=== PATIENT | female | born 1995 | race African-American/Black ===

== ENCOUNTER 2017-03-28 08:34 | Emergency (ER) | payer SELFPAY ==
[2017-03-28] MEDS ORDERED: methylPREDNISolone Sod Succ/PF 125 MG/2 ML VIAL ONE ×2 (09:52→09:53)
[2017-03-28] MEDS ORDERED: Water For Inject, Bacteriostat 30 ML ONE ×2 (09:52→09:54)
== END 2017-03-28 10:17 | disposition home or self-care (01) ==
LOC: ERS 08:34
DX: J02.9 Acute pharyngitis, unspecified (principal); R09.81 Nasal congestion; J32.9 Chronic sinusitis, unspecified; D50.0 Iron deficiency anemia secondary to blood loss (chronic); F90.9 Attention-deficit hyperactivity disorder, unspecified type; Z79.899 Other long term (current) drug therapy
CPT/HCPCS: 87081; 87430; 96372; J2930

== ENCOUNTER 2017-04-03 23:24 | Emergency (ER) | payer SELFPAY ==
[2017-04-04] MEDS ORDERED: methylPREDNISolone Sod Succ/PF 125 MG/2 ML VIAL ONE (00:02)
== END 2017-04-04 00:20 | disposition home or self-care (01) ==
LOC: ERS 23:24
DX: J02.9 Acute pharyngitis, unspecified (principal); F90.9 Attention-deficit hyperactivity disorder, unspecified type
CPT/HCPCS: 96372; J2930

== ENCOUNTER 2017-04-17 14:42 | Emergency (ER) | payer SELFPAY ==
[2017-04-17 15:42] LABS: #Eosinphils 0.1 thou/uL (0.0-0.7); #Lymphocytes 2.2 thou/uL (1.20-3.40); #Monocytes 0.5 thou/uL (0.11-0.59); #Neutrophils 4.2 thou/uL (1.40-6.50); %Basophils 0.6 % (0.0-1.0); %Eosinophils 1.4 % (0.0-10.0); %Lymphocytes 31.4 % (28.0-48.0); %Monocytes 7.4 % (0.0-4.0); Hematocrit 35.6 % (36.0-47.0); Mean Platelet Volume 7.1 fL (7.4-10.4); Red Blood Cell (RBC) Count 4.79 mill/uL (4.00-5.20)
[2017-04-17 16:06] LABS: ALT (SGPT) 15 U/L (8-55); AST (SGOT) 12 U/L (5-34); Alkaline Phosphatase 82 U/L (40-150); Anion Gap 10 mmol/L (10-20); BUN (Urea Nitrogen) 10 mg/dL (7.0-18.7); Bilirubin, Total 0.6 mg/dL (0.2-1.2); CK (CPK) 59 U/L (29-168); Calc. Creatinine Clearance 0 mL/min (70-130); Calcium 9.2 mg/dL (7.8-10.44); Carbon Dioxide 26 mmol/L (22-29); Chloride 103 mmol/L (98-107); Estimated GFR-MDRD Greater than 90; Globulin 3.5 g/dL (2.4-3.5); Magnesium 1.8 mg/dL (1.7-2.2); Protein, Total 7.4 g/dL (6.0-8.3)
[2017-04-17 16:09] LABS: Troponin I Less than 0.010 ng/mL (< 0.028)
--- NOTE | 2017-04-17 16:12 | RAD ---
TWO VIEW CHEST: History: Chest pain. Comparison: 03-15-09 FINDINGS: The lungs appear clear of infiltrate. No evidence of effusion or pneumothorax. Heart and mediastinum unremarkable. IMPRESSION: No acute finding. POS: [facility]
== END 2017-04-17 17:12 | disposition home or self-care (01) ==
LOC: ERS 14:42
DX: R00.2 Palpitations (principal); D50.0 Iron deficiency anemia secondary to blood loss (chronic); F90.9 Attention-deficit hyperactivity disorder, unspecified type
CPT/HCPCS: 36415; 71020; 80053; 82553; 83735; 84443; 84484; 85025; 85379; 93005

== ENCOUNTER 2017-08-29 12:06 | Emergency (ER) | payer SELFPAY ==
[2017-08-29 13:01] LABS: #Eosinphils 0.3 thou/uL (0.0-0.7); #Lymphocytes 2.2 thou/uL (1.20-3.40); #Monocytes 0.5 thou/uL (0.11-0.59); #Neutrophils 6.2 thou/uL (1.40-6.50); %Basophils 0.1 % (0.0-1.0); %Eosinophils 3.3 % (0.0-10.0); %Lymphocytes 23.7 % (28.0-48.0); %Monocytes 5.4 % (0.0-4.0); %Neutrophils 67.5 % (31.0-61.0); Hemoglobin 11.8 g/dL (12.0-16.0); Mean Corpuscular HGB CONC 32.5 g/dL (32.0-36.0); Mean Corpuscular Hemoglobin 22.3 pg (25.0-35.0); Mean Corpuscular Volume 68.5 fl (77.0-87.0); Mean Platelet Volume 7.3 fL (7.4-10.4); Platelet Count 420 thou/uL (130-400); RBC Distribution Width 14.1 % (11.5-14.5); Red Blood Cell (RBC) Count 5.28 mill/uL (4.00-5.20); White Blood Cell (WBC) Count 9.1 thou/uL (4.8-10.8)
[2017-08-29 13:11] LABS: Bilirubin Small (Negative); Blood, Urine Negative (Negative); Clarity CLEAR (Clear); Glucose, Urine (Dipstick) Negative (Negative); Leukocyte Trace (Negative); Nitrite Negative (Negative); Protein, Urine (Dipstick) Trace mg/dL (Neg-Trace); Specific Gravity, Urine 1.024 (1.002-1.036); pH, Urine 5.5 (5.0-9.0)
[2017-08-29 13:14] LABS: Bacteria/HPF Rare-Few HPF (None Seen); Hyaline Casts/LPF 4-6 HYALINE CAST LPF (0-3 Hyaline); Pathc Cast-AUWi Flag 0.67 (0-2.49)
[2017-08-29] MEDS ORDERED: Ondansetron HCl/PF 4 MG/2 ML Vial ONE (13:19)
[2017-08-29 13:20] LABS: Pregnancy Test - Urine (BHCG) Negative (Negative); Pregu Control Background? CLEAR/WHITE (CLR/WHITE); Pregu Control Bar Appear? YES (CONTROL BAR); Specific Gravity 1.024 (1.002-1.036)
[2017-08-29 13:22] LABS: ALT (SGPT) 14 U/L (8-55); AST (SGOT) 13 U/L (5-34); Albumin 4.1 g/dL (3.5-5.0); Alkaline Phosphatase 100 U/L (40-150); Anion Gap 14 mmol/L (10-20); BUN (Urea Nitrogen) 9 mg/dL (7.0-18.7); Calc. Creatinine Clearance 0 mL/min (70-130); Calcium 9.5 mg/dL (7.8-10.44); Carbon Dioxide 20 mmol/L (22-29); Chloride 106 mmol/L (98-107); Estimated GFR-MDRD Greater than 90; Globulin 3.8 g/dL (2.4-3.5); Glucose 109 mg/dL (70-105); Potassium 3.6 mmol/L (3.5-5.1); Protein, Total 7.9 g/dL (6.0-8.3); Sodium 136 mmol/L (136-145)
[2017-08-29 13:34] LABS: BHCG - Serum Negative (NEGATIVE); Pregs Control Background? CLEAR/WHITE (CLR/WHITE); Pregs Control Bar Appear? YES (CONTROL BAR)
[2017-08-29 13:45] LABS: CK (CPK) 58 U/L (29-168); Lipase 9 U/L (8-78)
== END 2017-08-29 15:00 | disposition home or self-care (01) ==
LOC: ERS 12:06
DX: E86.0 Dehydration (principal); F90.9 Attention-deficit hyperactivity disorder, unspecified type; D64.9 Anemia, unspecified
CPT/HCPCS: 36415; 80053; 81003; 81015; 81025; 82550; 83690; 84703; 85025; 96361; 96374; J2405

== ENCOUNTER 2017-10-22 13:06 | Emergency (ER) | payer SELFPAY ==
[2017-10-22] MEDS ORDERED: Dexamethasone 4 MG TAB ONE (14:46)
[2017-10-22] MEDS ORDERED: Acetaminophen 500 MG TAB ONE (14:46)
== END 2017-10-22 14:57 | disposition home or self-care (01) ==
LOC: ERS 13:06
DX: B34.9 Viral infection, unspecified (principal); F90.9 Attention-deficit hyperactivity disorder, unspecified type; D64.9 Anemia, unspecified
CPT/HCPCS: 87081; 87430; 99283; J8540

== ENCOUNTER 2018-02-14 08:54 | Emergency (ER) | payer SELFPAY ==
[2018-02-14] MEDS ORDERED: Acetaminophen 500 MG TAB ONE (10:16)
[2018-02-14] MEDS ORDERED: Ibuprofen 800 MG TAB ONE (10:16)
--- NOTE | 2018-02-14 10:40 | CT ---
CT HEAD NONCONTRAST: INDICATIONS: Headache. FINDINGS: There is no ventriculomegaly, mass effect, midline shift, or acute intracranial hemorrhage. The para nasal sinuses are clear, where visualized. IMPRESSION: No acute intracranial hemorrhage or mass effect. POS: [facility]
== END 2018-02-14 10:58 | disposition home or self-care (01) ==
LOC: ERS 08:54
DX: J30.9 Allergic rhinitis, unspecified (principal); R51 Headache; F90.9 Attention-deficit hyperactivity disorder, unspecified type; D64.9 Anemia, unspecified
CPT/HCPCS: 70450

== ENCOUNTER 2018-03-13 10:19 | Emergency (ER) | payer SELFPAY ==
[2018-03-13 11:20] LABS: Mean Corpuscular HGB CONC 31.7 g/dL (32.0-36.0); Mean Corpuscular Hemoglobin 21.2 pg (27.0-31.0); Mean Corpuscular Volume 66.7 fL (78.0-98.0); Mean Platelet Volume 8.2 fL (7.4-10.4); Platelet Count 432 thou/uL (130-400); RBC Distribution Width 14.6 % (11.5-14.5); Red Blood Cell (RBC) Count 4.74 mill/uL (4.20-5.40); White Blood Cell (WBC) Count 6.7 thou/uL (4.8-10.8)
[2018-03-13 11:21] LABS: #Eosinphils 0.2 thou/uL (0.0-0.7); #Lymphocytes 1.9 thou/uL (1.20-3.40); #Monocytes 0.3 thou/uL (0.11-0.59); #Neutrophils 4.2 thou/uL (1.40-6.50); %Basophils 0.1 % (0.0-1.0); %Eosinophils 3.3 % (0.0-10.0); %Lymphocytes 28.8 % (21.0-51.0); %Monocytes 4.9 % (0.0-10.0); %Neutrophils 62.9 % (42.0-75.0)
[2018-03-13 11:33] LABS: Pregnancy Test - Urine (BHCG) Negative (Negative); Pregu Control Background? CLEAR/WHITE (CLR/WHITE); Pregu Control Bar Appear? YES (CONTROL BAR); Specific Gravity 1.022 (1.002-1.036)
[2018-03-13 11:37] LABS: Anion Gap 12 mmol/L (10-20); BUN (Urea Nitrogen) 8 mg/dL (7.0-18.7); Calc. Creatinine Clearance 0 mL/min (70-130); Calcium 9.2 mg/dL (7.8-10.44); Carbon Dioxide 22 mmol/L (22-29); Chloride 107 mmol/L (98-107); Estimated GFR-MDRD Greater than 90; Glucose 114 mg/dL (70-105); Potassium 3.5 mmol/L (3.5-5.1); Sodium 137 mmol/L (136-145)
[2018-03-13 11:38] LABS: ALT (SGPT) 17 U/L (8-55); AST (SGOT) 16 U/L (5-34); Albumin 3.9 g/dL (3.5-5.0); Alkaline Phosphatase 93 U/L (40-150); Bilirubin, Direct 0.2 mg/dL (0.1-0.3); Bilirubin, Total 0.5 mg/dL (0.2-1.2); Protein, Total 7.4 g/dL (6.0-8.3)
[2018-03-13] MEDS ORDERED: Ondansetron HCl/PF 4 MG/2 ML Vial ONE (11:40)
[2018-03-13] MEDS ORDERED: Mag-Al 1200 mg/1200 mg/30 ML UDCUP ONE (11:40)
[2018-03-13] MEDS ORDERED: Lidocaine Viscous Sol 2% 15 ml UD Cup ONE (11:41)
[2018-03-13] MEDS ORDERED: Dicyclomine 20 MG TAB ONE (11:41)
[2018-03-13 11:51] LABS: Hypochromia SLIGHT = 6-15 cells (100X) (0-5/hpf); MDiff Complete? YES; Microcytosis MODERATE=15-30 cells (100X) (0-5/hpf); PLT Morphology Comment Appears Increased; Polychromasia SLIGHT = 2-3 cells (100X) (0-2/hpf)
[2018-03-13 12:54] LABS: Bilirubin Negative (Negative); Blood, Urine Negative (Negative); Clarity CLEAR (Clear); Glucose, Urine (Dipstick) Negative (Negative); Leukocyte Negative (Negative); Nitrite Negative (Negative); Protein, Urine (Dipstick) Negative (Neg-Trace); Specific Gravity, Urine 1.022 (1.002-1.036)
== END 2018-03-13 13:06 | disposition home or self-care (01) ==
LOC: ERS 10:19
DX: K52.9 Noninfective gastroenteritis and colitis, unspecified (principal); D64.9 Anemia, unspecified
CPT/HCPCS: 36415; 80048; 80076; 81003; 81025; 85025; 96361; 96374; J2405

== ENCOUNTER 2018-04-17 16:03 | Emergency (ER) | payer SELFPAY | END 2018-04-17 20:33 | disposition home or self-care (01) | LOC: ERS 16:03 | DX: B34.9 Viral infection, unspecified (principal); F90.9 Attention-deficit hyperactivity disorder, unspecified type; D64.9 Anemia, unspecified | CPT/HCPCS: 87081; 87430; 87804; 99283 ==

== ENCOUNTER 2018-04-24 17:19 | Emergency (ER) | payer SELFPAY ==
[2018-04-24 18:45] LABS: #Basophils 0.1 thou/uL (0.0-0.2); #Eosinphils 0.1 thou/uL (0.0-0.7); #Lymphocytes 4.9 thou/uL (1.20-3.40); #Monocytes 0.6 thou/uL (0.11-0.59); #Neutrophils 8.4 thou/uL (1.40-6.50); %Basophils 0.6 % (0.0-1.0); %Eosinophils 0.5 % (0.0-10.0); %Lymphocytes 34.9 % (21.0-51.0); %Monocytes 4.5 % (0.0-10.0); %Neutrophils 59.4 % (42.0-75.0); Hemoglobin 11.4 g/dL (12.0-16.0); Mean Corpuscular HGB CONC 30.9 g/dL (32.0-36.0); Mean Corpuscular Hemoglobin 20.6 pg (27.0-31.0); Mean Corpuscular Volume 66.6 fL (78.0-98.0); Mean Platelet Volume 8.7 fL (7.4-10.4); Platelet Count 428 thou/uL (130-400); RBC Distribution Width 15.3 % (11.5-14.5); Red Blood Cell (RBC) Count 5.54 mill/uL (4.20-5.40); White Blood Cell (WBC) Count 14.1 thou/uL (4.8-10.8)
[2018-04-24 18:59] LABS: BHCG - Serum Negative (NEGATIVE); Pregs Control Background? CLEAR/WHITE (CLR/WHITE); Pregs Control Bar Appear? YES (CONTROL BAR)
[2018-04-24 19:10] LABS: ALT (SGPT) 12 U/L (8-55); AST (SGOT) 14 U/L (5-34); Albumin 4.1 g/dL (3.5-5.0); Alkaline Phosphatase 95 U/L (40-150); Anion Gap 14 mmol/L (10-20); BUN (Urea Nitrogen) 9 mg/dL (7.0-18.7); Bilirubin, Total 0.4 mg/dL (0.2-1.2); Calc. Creatinine Clearance 0 mL/min (70-130); Calcium 9.4 mg/dL (7.8-10.44); Carbon Dioxide 19 mmol/L (22-29); Chloride 107 mmol/L (98-107); Estimated GFR-MDRD Greater than 90; Globulin 3.9 g/dL (2.4-3.5); Glucose 146 mg/dL (70-105); Potassium 3.3 mmol/L (3.5-5.1); Sodium 137 mmol/L (136-145)
[2018-04-24] MEDS ORDERED: Famotidine 20 MG TAB ONE (19:39)
[2018-04-24] MEDS ORDERED: Ondansetron ODT 4 MG TAB ONE (19:39)
[2018-04-24] MEDS ORDERED: Potassium Chloride 20 MEQ TAB ONE (20:20)
== END 2018-04-24 20:30 | disposition home or self-care (01) ==
LOC: ERS 17:19
DX: R11.2 Nausea with vomiting, unspecified (principal); D64.9 Anemia, unspecified; F90.9 Attention-deficit hyperactivity disorder, unspecified type
CPT/HCPCS: 36415; 80053; 84703; 85025; 99284; Q0162

== ENCOUNTER 2018-06-02 08:05 | Emergency (ER) | payer SELFPAY ==
[2018-06-02 09:15] LABS: #Eosinphils 0.1 thou/uL (0.0-0.7); #Lymphocytes 2.2 thou/uL (1.20-3.40); #Monocytes 0.6 thou/uL (0.11-0.59); #Neutrophils 5.7 thou/uL (1.40-6.50); %Basophils 0.4 % (0.0-1.0); %Eosinophils 1.5 % (0.0-10.0); %Lymphocytes 25.3 % (21.0-51.0); %Monocytes 7.2 % (0.0-10.0); %Neutrophils 65.6 % (42.0-75.0); Hemoglobin 9.8 g/dL (12.0-16.0); Mean Corpuscular HGB CONC 31.5 g/dL (32.0-36.0); Mean Corpuscular Hemoglobin 20.7 pg (27.0-31.0); Mean Corpuscular Volume 65.9 fL (78.0-98.0); Mean Platelet Volume 8.6 fL (7.4-10.4); Platelet Count 401 thou/uL (130-400); RBC Distribution Width 15.2 % (11.5-14.5); Red Blood Cell (RBC) Count 4.75 mill/uL (4.20-5.40); White Blood Cell (WBC) Count 8.7 thou/uL (4.8-10.8)
[2018-06-02 09:23] LABS: BHCG - Serum Negative (NEGATIVE); Pregs Control Background? CLEAR/WHITE (CLR/WHITE); Pregs Control Bar Appear? YES (CONTROL BAR)
[2018-06-02 09:34] LABS: Troponin I Less than 0.010 ng/mL (< 0.028)
[2018-06-02 09:42] LABS: ALT (SGPT) 13 U/L (8-55); AST (SGOT) 13 U/L (5-34); Albumin 3.9 g/dL (3.5-5.0); Alkaline Phosphatase 98 U/L (40-150); Anion Gap 13 mmol/L (10-20); BUN (Urea Nitrogen) 7 mg/dL (7.0-18.7); Bilirubin, Total 0.5 mg/dL (0.2-1.2); Calc. Creatinine Clearance 0 mL/min (70-130); Calcium 9.2 mg/dL (7.8-10.44); Carbon Dioxide 22 mmol/L (22-29); Chloride 107 mmol/L (98-107); Estimated GFR-MDRD Greater than 90; Globulin 3.1 g/dL (2.4-3.5); Glucose 112 mg/dL (70-105); Potassium 3.9 mmol/L (3.5-5.1); Sodium 138 mmol/L (136-145)
--- NOTE | 2018-06-02 09:51 | RAD ---
2 VIEWS CHEST: Date: 06/02/18 COMPARISON: 04/17/17. HISTORY: Cough. FINDINGS: Lungs are clear. Heart and mediastinal contours unremarkable. IMPRESSION: No acute findings. POS: [facility]
--- NOTE | 2018-06-02 11:09 | CT ---
CTA CHEST WITH CONTRAST: Date: 06/02/18 COMPARISON: None. HISTORY: 23-year-old female with sore throat and cough. Dyspnea. Chest pressure. TECHNIQUE: Multiple contiguous axial images were obtained in a CTA of the chest with contrast per pulmonary embo lism protocol. 3D oblique MIP reformats and direct coronal reformats were performed. FINDINGS: The pulmonary arteries are well opacified without filling defects to suggest pulmonary emboli. The he art is normal in size without focal cardiac abnormality. No hilar or mediastinal lymphadenopathy seen . No focal infiltrates are seen in the lungs. No pneumothorax or pleural effusions are seen. No suspici ous pulmonary nodules are present. The visualized subdiaphragmatic structures and chest wall soft tissues are unremarkable. The bones ar e unremarkable. IMPRESSION: No evidence of pulmonary thromboembolism. POS: [facility]
[2018-06-02] MEDS ORDERED: Iopamidol 370 76% 100 ML VIAL ONE (12:43)
== END 2018-06-02 11:17 | disposition home or self-care (01) ==
LOC: ERS 08:05
DX: J02.9 Acute pharyngitis, unspecified (principal); F90.9 Attention-deficit hyperactivity disorder, unspecified type; D64.9 Anemia, unspecified
CPT/HCPCS: 71046; 71275; 80053; 84484; 84703; 85025; 85379; 87081; 87430; 93005

== ENCOUNTER 2018-06-10 14:32 | Emergency (ER) | payer SELFPAY | END 2018-06-10 15:55 | disposition home or self-care (01) | LOC: ERS 14:32 | DX: J30.9 Allergic rhinitis, unspecified (principal); D64.9 Anemia, unspecified; F90.9 Attention-deficit hyperactivity disorder, unspecified type | CPT/HCPCS: 99283 ==

== ENCOUNTER 2018-06-17 09:51 | Emergency (ER) | payer SELFPAY | END 2018-06-17 11:10 | disposition home or self-care (01) | LOC: ERS 09:51 | DX: J02.9 Acute pharyngitis, unspecified (principal); D64.9 Anemia, unspecified; F90.9 Attention-deficit hyperactivity disorder, unspecified type | CPT/HCPCS: 99281 ==

== ENCOUNTER 2018-06-30 16:22 | Emergency (ER) | payer SELFPAY ==
[2018-06-30 19:02] LABS: Bilirubin Small (Negative); Blood, Urine Negative (Negative); Clarity CLEAR (Clear); Glucose, Urine (Dipstick) Negative (Negative); Leukocyte Negative (Negative); Nitrite Negative (Negative); Protein, Urine (Dipstick) Trace mg/dL (Neg-Trace); Specific Gravity, Urine 1.027 (1.002-1.036)
[2018-06-30 19:34] LABS: Pregnancy Test - Urine (BHCG) Negative (Negative); Pregu Control Background? CLEAR/WHITE (CLR/WHITE); Pregu Control Bar Appear? YES (CONTROL BAR); Specific Gravity 1.027 (1.002-1.036)
== END 2018-06-30 20:25 | disposition home or self-care (01) ==
LOC: ERS 16:22
DX: R11.2 Nausea with vomiting, unspecified (principal); D64.9 Anemia, unspecified; F90.9 Attention-deficit hyperactivity disorder, unspecified type
CPT/HCPCS: 81003; 81025; 99284

== ENCOUNTER 2018-08-20 11:39 | Emergency (ER) | payer SELFPAY | END 2018-08-20 14:20 | disposition home or self-care (01) | LOC: ERS 11:39 | DX: J06.9 Acute upper respiratory infection, unspecified (principal); R11.2 Nausea with vomiting, unspecified; D64.9 Anemia, unspecified; F90.9 Attention-deficit hyperactivity disorder, unspecified type | CPT/HCPCS: 87804; 99284 ==

== ENCOUNTER 2019-01-06 22:19 | Emergency (ER) | payer SELFPAY ==
[2019-01-06 22:46] LABS: Bilirubin Small (Negative); Blood, Urine Negative (Negative); Glucose, Urine (Dipstick) Negative (Negative); Leukocyte Negative (Negative); Nitrite Positive (Negative); Protein, Urine (Dipstick) 30 mg/dL (Neg-Trace)
[2019-01-06 22:49] LABS: Clarity Hazy (Clear); Pregnancy Test - Urine (BHCG) Negative (Negative); Pregu Control Background? CLEAR/WHITE (CLR/WHITE); Pregu Control Bar Appear? YES (CONTROL BAR); Specific Gravity 1.031 (1.002-1.036)
[2019-01-06 22:55] LABS: Bacteria/HPF 1+ HPF (None Seen)
== END 2019-01-06 23:30 | disposition home or self-care (01) ==
LOC: ERS 22:19
DX: N39.0 Urinary tract infection, site not specified (principal); F90.9 Attention-deficit hyperactivity disorder, unspecified type
CPT/HCPCS: 81003; 81015; 81025; 99283

== ENCOUNTER 2019-10-28 17:17 | Emergency (ER) | payer BC, SELFPAY ==
[~2019-10-28 17:17] MED LIST: Iopamidol-370 76% 500 ML 1 ML ONE
[2019-10-28] MEDS ORDERED: Ondansetron PF 4 MG/2 ML Vial ONE (17:46)
[2019-10-28] MEDS ORDERED: Morphine 4 MG/ML VIAL ONE ×2 (17:46→19:44)
[2019-10-28 18:03] LABS: Pregnancy Test - Urine (BHCG) Negative (Negative); Pregu Control Background? CLEAR/WHITE (CLR/WHITE); Pregu Control Bar Appear? YES (CONTROL BAR); Specific Gravity 1.023 (1.002-1.036)
[2019-10-28 18:04] LABS: Bilirubin Negative (Negative); Blood, Urine Negative (Negative); Clarity Turbid (Clear); Glucose, Urine (Dipstick) Normal (Negative); Leukocyte 25 Leu/uL (Negative); Nitrite Negative (Negative); Protein, Urine (Dipstick) 30 mg/dL (Neg-Trace)
[2019-10-28 18:05] LABS: Bacteria/HPF Rare-Few HPF (None Seen)
[2019-10-28 18:25] LABS: #Eosinphils 0.4 thou/uL (0.0-0.7); #Lymphocytes 2.7 thou/uL (1.20-3.40); #Monocytes 0.4 thou/uL (0.11-0.59); #Neutrophils 5.3 thou/uL (1.40-6.50); %Basophils 0.5 % (0.0-1.0); %Eosinophils 4.4 % (0.0-10.0); %Lymphocytes 30.9 % (21.0-51.0); %Monocytes 4.1 % (0.0-10.0); %Neutrophils 60.2 % (42.0-75.0); Hemoglobin 12.1 g/dL (12.0-16.0); Mean Corpuscular HGB CONC 32.2 g/dL (32.0-36.0); Mean Corpuscular Hemoglobin 22.3 pg (27.0-31.0); Mean Corpuscular Volume 69.2 fL (78.0-98.0); Mean Platelet Volume 7.7 fL (7.4-10.4); Platelet Count 387 thou/uL (130-400); RBC Distribution Width 14.5 % (11.5-14.5); Red Blood Cell (RBC) Count 5.41 mill/uL (4.20-5.40); White Blood Cell (WBC) Count 8.8 thou/uL (4.8-10.8)
[2019-10-28 18:39] LABS: ALT (SGPT) 13 U/L (8-55); AST (SGOT) 12 U/L (5-34); Albumin 4.1 g/dL (3.5-5.0); Alkaline Phosphatase 98 U/L (40-110); Anion Gap 12 mmol/L (10-20); BUN (Urea Nitrogen) 7 mg/dL (7.0-18.7); Bilirubin, Total 0.5 mg/dL (0.2-1.2); Calc. Creatinine Clearance 0 mL/min (70-130); Calcium 9.6 mg/dL (7.8-10.44); Carbon Dioxide 24 mmol/L (22-29); Chloride 105 mmol/L (98-107); Estimated GFR-MDRD Greater than 90; Globulin 3.7 g/dL (2.4-3.5); Glucose 100 mg/dL (70-105); Lipase 15 U/L (8-78); Potassium 3.5 mmol/L (3.5-5.1); Protein, Total 7.8 g/dL (6.0-8.3); Sodium 137 mmol/L (136-145)
[2019-10-28 18:57] LABS: MDiff Complete? YES; Microcytosis MODERATE=15-30 cells (100X) (0-5/hpf); Ovalocytes SLIGHT = 2-5 cells (100X) (0-1/hpf); Platelet Morphology Comment Appears Adequate; Polychromasia SLIGHT = 2-3 cells (100X) (0-2/hpf); Target Cells SLIGHT = 2-5 cells (100X) (0-1/hpf)
--- NOTE | 2019-10-28 19:30 | CT ---
CT ABDOMEN AND PELVIS WITH IV CONTRAST: 10/28/19 HISTORY: Abdominal pain for one week. Patient states pain is in periumbilical region and radiates into the ri ght lower quadrant. Nausea and vomiting. No appetite. COMPARISON: 09/08/2011. FINDINGS: The visualized lung bases are clear. The liver, spleen, pancreas, bilateral adrenal glands, kidneys abdominal aorta, urinary bladder, and uterus demonstrate a normal CT appearance. There are low density structures in each ovary likely rela bernice to dominant follicles. The appendix is visualized and does appear normal in caliber without periappendiceal inflammatory deanne nges seen. There is mild increased number of lymph nodes seen in the right lower quadrant which are not enlarged by CT size criteria. Largest lymph node measures 8 mm in short axis dimension. Findings are overall nonspecific. Mesenteric adenitis is a possibility. Loops of small bowel are normal in caliber. No free fluid or fluid collection is seen in the abdomen or pelvis. No suspicious lytic or sclerotic osseous lesions are identified. Imp 1. Mild increase in number of lymph nodes in the right lower quadrant. No enlarged lymph nodes a re seen by CT size criteria, but increase in lymph nodes in right lower quadrant could potentially be related to mesenteric adenitis. 2. No CT evidence of appendicitis. POS: [facility]
== END 2019-10-28 20:30 | disposition home or self-care (01) ==
LOC: ERS 17:17
DX: R10.31 Right lower quadrant pain (principal); R10.33 Periumbilical pain; R11.2 Nausea with vomiting, unspecified; R19.7 Diarrhea, unspecified; D64.9 Anemia, unspecified; F90.9 Attention-deficit hyperactivity disorder, unspecified type; R50.9 Fever, unspecified; Z79.899 Other long term (current) drug therapy
CPT/HCPCS: 74177; 80053; 81003; 81015; 81025; 83690; 85025; 96361; 96374; 96375; 96376; J2270; J2405; Q9967

== ENCOUNTER 2020-03-22 14:55 | Emergency (ER) | payer BC ==
[2020-03-22 15:36] LABS: #Eosinphils 0.1 thou/uL (0.0-0.7); #Lymphocytes 2.8 thou/uL (1.20-3.40); #Monocytes 0.6 thou/uL (0.11-0.59); #Neutrophils 4.5 thou/uL (1.40-6.50); %Basophils 0.3 % (0.0-1.0); %Eosinophils 1.8 % (0.0-10.0); %Lymphocytes 34.5 % (21.0-51.0); %Monocytes 7.5 % (0.0-10.0); %Neutrophils 55.9 % (42.0-75.0); Hemoglobin 10.7 g/dL (12.0-16.0); Mean Corpuscular HGB CONC 31.5 g/dL (32.0-36.0); Mean Corpuscular Hemoglobin 21.6 pg (27.0-31.0); Mean Corpuscular Volume 68.7 fL (78.0-98.0); Mean Platelet Volume 8.5 fL (7.4-10.4); Platelet Count 378 thou/uL (130-400); RBC Distribution Width 15.3 % (11.5-14.5); Red Blood Cell (RBC) Count 4.95 mill/uL (4.20-5.40); White Blood Cell (WBC) Count 8.1 thou/uL (4.8-10.8)
[2020-03-22 15:52] LABS: Anisocytosis SLIGHT = 6-15 cells (100X) (0-5/hpf); Hypochromia SLIGHT = 6-15 cells (100X) (0-5/hpf); MDiff Complete? YES; Microcytosis SLIGHT = 6-15 cells (100X) (0-5/hpf); Ovalocytes SLIGHT = 2-5 cells (100X) (0-1/hpf); Platelet Morphology Comment Appears Adequate; Polychromasia SLIGHT = 2-3 cells (100X) (0-2/hpf)
[2020-03-22 15:54] LABS: ALT (SGPT) 15 U/L (8-55); AST (SGOT) 13 U/L (5-34); Albumin 3.8 g/dL (3.5-5.0); Alkaline Phosphatase 85 U/L (40-110); Anion Gap 11 mmol/L (10-20); BUN (Urea Nitrogen) 5 mg/dL (7.0-18.7); Bilirubin, Total 0.7 mg/dL (0.2-1.2); Calc. Creatinine Clearance 0 mL/min (70-130); Calcium 8.7 mg/dL (7.8-10.44); Carbon Dioxide 23 mmol/L (22-29); Chloride 106 mmol/L (98-107); Estimated GFR-MDRD Greater than 90; Globulin 3.5 g/dL (2.4-3.5); Glucose 90 mg/dL (70-105); Potassium 3.3 mmol/L (3.5-5.1); Protein, Total 7.3 g/dL (6.0-8.3); Sodium 137 mmol/L (136-145)
[2020-03-22] MEDS ORDERED: Acetaminophen 500 MG TAB ONE (16:34)
[2020-03-22] MEDS ORDERED: Ondansetron PF 4 MG/2 ML Vial ONE (16:34)
[2020-03-22 16:51] LABS: Bilirubin Negative (Negative); Blood, Urine Large (Negative); Clarity Cloudy (Clear); Glucose, Urine (Dipstick) Negative (Negative); Ketone, Urine Negative (Negative); Leukocyte Negative (Negative); Nitrite Negative (Negative); Protein, Urine (Dipstick) Trace mg/dL (Neg-Trace)
[2020-03-22 16:55] LABS: RBC/HPF Greater than 50 HPF (0-3)
[2020-03-22 16:57] LABS: Bacteria/HPF None Seen HPF (None Seen); WBC/HPF 0-3 HPF (0-3)
--- NOTE | 2020-03-22 17:02 | ULT ---
Exam: Pelvic ultrasound HISTORY: First trimester vaginal bleeding. COMPARISON: 07/25/2018 TECHNIQUE: Multiple grayscale and color Doppler images were obtained in a transabdominal and transvag inal pelvic ultrasound. Spectral analysis of the Doppler waveforms of the ovaries were performed. FINDINGS: CERVIX: Unremarkable UTERUS AND ENDOMETRIUM: There is heterogeneous material seen within the lower uterine segment of the endometrial canal which measures 2.3 cm x 1.2 cm. Findings may be related to missed with retained products of conception. Findings could be related to hemorrhage in this region. There is no fluid collection seen in the endometrial canal to suggest an intrauterine gestation based on this exam. No free fluid is present. RIGHT OVARY: Normal flow, without focal mass. LEFT OVARY: Normal flow, without focal mass. IMPRESSION: 1. Heterogeneous material within the endometrial canal the lower uterine segment. As stated above, th is could represent missed with retained products of conception or hemorrhage. There is no fluid collection seen in the endometrial canal to suggest an intrauterine gestation. Ectopic pregnanc y cannot be excluded based on sonographic evaluation. Correlation with quantitative beta hCG level is recommended. [facility] consultation suggested. 2. Above findings discussed with Dr. Montgomery in the emergency department on 03/22/2020 at 1658 hours.
[2020-03-24 21:49] LABS: Chlamydia by PCR Not Detected (NotDetected); GC by PCR Not Detected (NotDetected)
== END 2020-03-22 18:45 | disposition home or self-care (01) ==
LOC: ERS 14:55
DX: O20.0 Threatened abortion (principal); O99.011 Anemia complicating pregnancy, first trimester; O99.341 Other mental disorders complicating pregnancy, first trimester; F90.9 Attention-deficit hyperactivity disorder, unspecified type; F41.9 Anxiety disorder, unspecified; F32.9 Major depressive disorder, single episode, unspecified; Z3A.01 Less than 8 weeks gestation of pregnancy
CPT/HCPCS: 36415; 76856; 80053; 81003; 81015; 84702; 85025; 86900; 86901; 87480; 87491; 87510; 87591; 87660; 96374; J2405

== ENCOUNTER 2022-08-08 18:37 | Observation (INO) | payer OTHER ==
[2022-08-08 19:08] LABS: #Basophils 0.1 thou/uL (0.0-0.2); #Eosinphils 0.1 thou/uL (0.0-0.7); #Lymphocytes 0.9 thou/uL (1.20-3.40); #Monocytes 0.4 thou/uL (0.11-0.59); #Neutrophils 8.7 thou/uL (1.40-6.50); %Basophils 0.9 % (0.0-1.0); %Eosinophils 1.1 % (0.0-10.0); %Monocytes 4.1 % (0.0-10.0); Hemoglobin 10.9 g/dL (12.0-16.0); Mean Corpuscular HGB CONC 30.4 g/dL (32.0-36.0); Mean Corpuscular Hemoglobin 19.1 pg (27.0-31.0); Mean Corpuscular Volume 62.8 fl (78.0-98.0); Mean Platelet Volume 11.2 fL (7.4-10.4); Platelet Count 490 10x3/uL (130-400); RBC Distribution Width 17.1 % (11.5-14.5); Red Blood Cell (RBC) Count 5.72 mill/uL (4.20-5.40); White Blood Cell (WBC) Count 10.3 10x3/uL (4.8-10.8)
[2022-08-08 19:29] LABS: Anisocytosis SLIGHT = 6-15 cells (100X) (0-5/hpf); Elliptocytes SLIGHT = 2-5 cells (100X) (0-1/hpf); Hypochromia MODERATE=16-30 cells (100X) (0-5/hpf); MDiff Complete? YES; Microcytosis MODERATE=15-30 cells (100X) (0-5/hpf); Ovalocytes SLIGHT = 2-5 cells (100X) (0-1/hpf); Platelet Morphology Comment Appears Increased; Polychromasia SLIGHT = 2-3 cells (100X) (0-2/hpf); Reflex for Review?? YES; Tear Drops SLIGHT = 2-5 cells (100X) (0-1/hpf)
[2022-08-08 19:38] LABS: ALT (SGPT) 13 U/L (8-55); AST (SGOT) 15 U/L (5-34); Albumin 4.3 g/dL (3.5-5.0); Alkaline Phosphatase 99 U/L (40-110); Anion Gap 14 mmol/L (10-20); BUN (Urea Nitrogen) 9 mg/dL (7.0-18.7); Bilirubin, Total 0.9 mg/dL (0.2-1.2); Calc. Creatinine Clearance 0 mL/min (70-130); Calcium 9.9 mg/dL (7.8-10.44); Carbon Dioxide 20 mmol/L (22-29); Chloride 105 mmol/L (98-107); Estimated GFR 105; Globulin 4.3 g/dL (2.4-3.5); Glucose 111 mg/dL (70-105); Lipase 15 U/L (8-78); Potassium 4.2 mmol/L (3.5-5.1); Protein, Total 8.6 g/dL (6.0-8.3); Sodium 135 mmol/L (136-145)
[2022-08-08] MEDS ORDERED: Ondansetron PF 4 MG/2 ML Vial ONE (21:17)
[2022-08-08] MEDS ORDERED: Ketorolac Tromethamine 30 MG/ML VIAL ONE (22:47)
[2022-08-08 22:50] LABS: Bilirubin Negative (Negative); Blood, Urine Negative (Negative); Clarity Clear (Clear); Glucose, Urine (Dipstick) Normal (Negative); Ketone, Urine Trace mg/dL (Negative); Leukocyte Negative Leu/uL (Negative); Nitrite Negative (Negative); Protein, Urine (Dipstick) 20 mg/dL (Neg-Trace); Specific Gravity, Urine 1.026 (1.002-1.036); Urobilinogen Normal mg/dL (Less than 2); pH, Urine 5.5 (5.0-9.0)
[2022-08-08 22:52] LABS: Pregnancy Test - Urine (BHCG) Negative (Negative); Pregu Control Background? CLEAR/WHITE (CLR/WHITE); Pregu Control Bar Appear? YES (CONTROL BAR); Specific Gravity 1.026 (1.002-1.036)
[2022-08-09] MEDS ORDERED: Acetaminophen 500 MG TAB ONE (01:25)
[2022-08-09] MEDS ORDERED: Ondansetron PF 4 MG/2 ML Vial ONE (01:38)
[2022-08-09] MEDS ORDERED: Ondansetron PF 4 MG/2 ML Vial IVP PRN (03:09)
[2022-08-09] MEDS ORDERED: Calcium Carbonate 500 MG ChewTAB PO PRN (03:09)
[2022-08-09] MEDS ORDERED: Loperamide HCl 2 MG CAP PO PRN (03:09)
[2022-08-09] MEDS ORDERED: Acetaminophen 325 MG TAB PO PRN (03:09)
[2022-08-09] MEDS ORDERED: Ondansetron ODT 4 MG TAB PO PRN (03:09)
[2022-08-09] MEDS ORDERED: Sodium Chloride 0.9% 1,000 ML IV SCH (03:15)
[2022-08-09] MEDS ORDERED: Lidocaine 2% Viscous Solution 20 ML, Aluminum & Magnesium Hydroxide 30 ML, Donnatal Eli... SSW SCH (03:45)
[2022-08-09 04:29] VITALS: BMI 47.5
[2022-08-09 05:11] LABS: Hemoglobin A1c 5.8 % (4.0-6.0)
[2022-08-09 05:25] LABS: Iron 24 ug/dL (50-170); Iron Binding Capacity, Total 306 mcg/dL (265-497)
[2022-08-09 05:44] LABS: Band 4 % (5-11); Ferritin 14.91 ng/mL (10-291); Hemoglobin 8.9 g/dL (12.0-16.0); Hypochromia SLIGHT = 6-15 cells (100X) (0-5/hpf); Lymphocytes 17 % (21-51); MDiff Complete? YES; Mean Corpuscular HGB CONC 31.1 g/dL (32.0-36.0); Mean Corpuscular Hemoglobin 19.5 pg (27.0-31.0); Mean Corpuscular Volume 62.7 fl (78.0-98.0); Mean Platelet Volume 10.4 fL (7.4-10.4); Microcytosis SLIGHT = 6-15 cells (100X) (0-5/hpf); Neutrophil 79 % (42-75); Platelet Count 398 10x3/uL (130-400); Platelet Morphology Comment Appears Adequate; RBC Distribution Width 16.9 % (11.5-14.5); Red Blood Cell (RBC) Count 4.55 mill/uL (4.20-5.40); Thyroid Stimulating Hormone 1.7621 uIU/mL (0.35-4.94)
[2022-08-09 05:58] LABS: SARS-CoV-2 NAA Rapid Test Not Detected (NotDetected)
[2022-08-09 06:10] LABS: ALT (SGPT) 10 U/L (8-55); AST (SGOT) 12 U/L (5-34); Albumin 3.5 g/dL (3.5-5.0); Alkaline Phosphatase 77 U/L (40-110); Anion Gap 11 mmol/L (10-20); BUN (Urea Nitrogen) 8 mg/dL (7.0-18.7); Bilirubin, Total 1.1 mg/dL (0.2-1.2); Calc. Creatinine Clearance 233 mL/min (70-130); Calcium 8.2 mg/dL (7.8-10.44); Carbon Dioxide 18 mmol/L (22-29); Cardiac Risk 4.9 (Less than 4.5); Chloride 110 mmol/L (98-107); Cholesterol 118 mg/dl (< 200 Desired); Estimated GFR 108; Globulin 3.3 g/dL (2.4-3.5); Glucose 101 mg/dL (70-105); HDL Cholesterol 24 mg/dL (>60 Neg Risk); LDL Cholesterol, Calculated 78 mg/dL; Magnesium 1.5 mg/dL (1.6-2.6); Potassium 3.6 mmol/L (3.5-5.1); Protein, Total 6.8 g/dL (6.0-8.3); Sodium 135 mmol/L (136-145); Triglycerides 81 mg/dL (Less than 150)
[2022-08-09] MEDS ORDERED: Magnesium 2 GM/50 ML(in water) 2 GM in Premix Bag 1 BAG IVPB SCH (07:15)
[2022-08-09 08:35] VITALS: TEMP 98.2
[2022-08-09] MEDS ORDERED: Famotidine/PF 20 mg/2ml Vial SLOW IVP SCH (09:00)
[2022-08-09] MEDS ORDERED: Famotidine 20 MG TAB PO SCH (09:00)
[2022-08-09 11:11] LABS: Campy jejuni + coli by PCR Negative (Negative); STEC Shiga Toxin 1+2 Negative (Negative); Salmonella spp. by PCR Negative (Negative); Shigella spp + EIEC by PCR Negative (Negative)
[2022-08-09 11:52] VITALS: BP 134/79
== END 2022-08-09 15:30 | disposition home or self-care (01) ==
LOC: ERS 18:37 → 2SW 08-09 03:14
PROVIDERS: ADMIT Family Medicine; ATTEND Family Medicine
DX: K52.9 Noninfective gastroenteritis and colitis, unspecified (principal); R00.0 Tachycardia, unspecified; R03.0 Elevated blood-pressure reading, without diagnosis of hypertension; D50.9 Iron deficiency anemia, unspecified; E83.42 Hypomagnesemia; E87.1 Hypo-osmolality and hyponatremia; E66.01 Morbid (severe) obesity due to excess calories; Z68.42 Body mass index [BMI] 45.0-49.9, adult; Z20.822 Contact with and (suspected) exposure to COVID-19
CPT/HCPCS: 36415; 74177; 80053; 80061; 81003; 81025; 82728; 83036; 83540; 83550; 83630; 83690; 83735; 84443; 85025; 85060; 87338; 87505; 93005; 96375; G0378; J1885; J2405; J3475; J7050; S0028

== ENCOUNTER 2025-06-21 21:55 | Emergency (ER) | payer BC, OTHER ==
[2025-06-21 22:29] LABS: #Basophils 0.08 10x3/uL (0.0-0.2); #Eosinophils 0.30 10x3/uL (0.0-0.7); #Monocytes 0.35 10x3/uL (0.11-0.59); #Neutrophils 3.67 10x3/uL (1.40-6.50); %Basophils 1.1 % (0.0-1.0); %Eosinophils 4.0 % (0.0-10.0); %Lymphocytes 41.4 % (21.0-51.0); %Monocytes 4.6 % (0.0-10.0); %Neutrophils 48.8 % (42.0-75.0); Hematocrit 32.0 % (36.0-47.0); Hemoglobin 9.1 g/dL (12.0-16.0); Mean Corpuscular Hemoglobin 18.7 pg (27.0-31.0); Mean Corpuscular Volume 65.7 fL (78.0-98.0); Platelet Count 397 10x3/uL (130-400); Red Blood Cell (RBC) Count 4.87 mill/uL (4.20-5.40); White Blood Cell (WBC) Count 7.53 10x3/uL (4.8-10.8)
[2025-06-21 22:41] LABS: ALT (SGPT) Less than 7 U/L (Less than 34); AST (SGOT) 13 U/L (11-34); Albumin 3.6 g/dL (3.1-4.5); Alkaline Phosphatase 76 U/L (40-110); Anion Gap 14 mmol/L (10-20); BUN (Urea Nitrogen) 8 mg/dL (7.0-18.7); Bilirubin, Total 0.3 mg/dL (0.3-1.2); Calc. Creatinine Clearance 0 mL/min (70-130); Calcium 9.1 mg/dL (7.8-10.44); Carbon Dioxide 24 mmol/L (22-29); Chloride 106 mmol/L (98-107); Globulin 3.8 g/dL (2.4-3.5); Glucose 105 mg/dL (70-105); Potassium 3.7 mmol/L (3.5-5.1); Sodium 140 mmol/L (136-145)
== END 2025-06-22 01:28 | disposition home or self-care (01) ==
LOC: ERS 21:55
DX: R07.9 Chest pain, unspecified (principal)
CPT/HCPCS: 36415; 71045; 80053; 84484; 85025; 93005